=== PATIENT | male | born 1975 | race Caucasian/White ===

== ENCOUNTER 2018-03-27 08:39 | Day surgery (SDC) | payer OTHER | END 2018-03-27 12:37 | disposition home or self-care (01) | LOC: AMB-ENDOS 08:39 | DX: D12.2 Benign neoplasm of ascending colon (principal); D12.0 Benign neoplasm of cecum; D12.3 Benign neoplasm of transverse colon; K64.8 Other hemorrhoids ==

== ENCOUNTER 2020-11-09 16:32 | Inpatient (IN) | payer OTHER ==
[~2020-11-09] VITALS: Ht 175.3 cm; Wt 99.8 kg
[2020-11-09] MEDS ORDERED: EZETIMIBE-SIMV1 EAC1 PO (16:55)
[2020-11-09] MEDS ORDERED: JANUMET 50-1,01 EACH PO (16:55)
[2020-11-09] MEDS ORDERED: BYSTOLIC5 MG PO (16:55)
[2020-11-09] MEDS ORDERED: OLMESARTAN-HCT1 EACH PO (16:55)
[2020-11-09] MEDS ORDERED: FARXIGA10 MG PO (16:55)
[2020-11-09] MEDS ORDERED: ANUSOL-HC25 MG RECTAL (16:56)
[2020-11-09] MEDS ORDERED: TADALAFIL5 MG PO (16:56)
--- NOTE | 2020-11-09 16:56 | NUR ---
SE RECIBE PACIENTE ALERTA, ORIENTADO X 3 ESFERAS REFIERE TENER SANGRADO ANAL, DESDE HACE 14 DACOSTA, SE UBICA EN AREA DE OBSERVACION PTE , DR.NICOLAS MELLO.
== END 2020-11-10 14:49 | disposition home or self-care (01) | DRG 379 ==
LOC: ER 16:32 → SURG 18:16 → SEC-K 18:16 → SURG 18:36
PROVIDERS: ADMIT Surgery; ATTEND Surgery
PROC: 0DBM8ZX Excision of Descending Colon, Via Natural or Artificial Opening Endoscopic, Diagnostic (ICD-10-PCS; principal; 2020-11-10)
PROC: 0DBP8ZX Excision of Rectum, Via Natural or Artificial Opening Endoscopic, Diagnostic (ICD-10-PCS; 2020-11-10)
DX: K62.5 Hemorrhage of anus and rectum (principal); K63.5 Polyp of colon; K64.5 Perianal venous thrombosis; Z12.11 Encounter for screening for malignant neoplasm of colon; Z20.822 Contact with and (suspected) exposure to COVID-19

== ENCOUNTER 2021-11-18 13:45 | Outpatient (CLI) | payer OTHER ==
[~2021-11-18 13:45] MED LIST: ANUSOL-HC25 MG RECTAL; BYSTOLIC5 MG PO; EZETIMIBE-SIMV1 EAC1 PO; FARXIGA10 MG PO; JANUMET 50-1,01 EACH PO; OLMESARTAN-HCT1 EACH PO; TADALAFIL5 MG PO
== END 2021-11-18 13:58 | disposition home or self-care (01) ==
LOC: RAD 13:45
PROVIDERS: ATTEND General Practice
DX: Z20.1 Contact with and (suspected) exposure to tuberculosis (principal)